=== PATIENT | female | born 1965 ===

== ENCOUNTER 2017-03-10 05:30 | Day surgery (SDC) | payer OTHER ==
[~2017-03-10 05:30] MED LIST: CARDURA8 MG PO; FORTAMET1000 MG PO; GLUCOTROL10 MG PO; HYZAAR 100-12.1 EACH PO; NORVASC5 MG PO; SYNTHROID100 MCG PO; TOPROL XL50 M1 PO
[2017-03-10] MEDS ORDERED: CIPRO250 MG/5 M PO (09:20)
[2017-03-10] MEDS ORDERED: ULTRACET PO (09:21)
== END 2017-03-10 12:40 | disposition home or self-care (01) ==
LOC: CIR.AMB 05:30
DX: N81.6 Rectocele (principal); N81.5 Vaginal enterocele; N39.3 Stress incontinence (female) (male)

== ENCOUNTER 2017-08-18 05:44 | Day surgery (SDC) | payer OTHER ==
[~2017-08-18 05:44] MED LIST changes: +CIPRO250 MG/5 M PO; +ULTRACET PO
[2017-08-18] MEDS ORDERED: ULTRACET PO (10:43)
[2017-08-18] MEDS ORDERED: MACROBID 100 M100 MG PO (10:43)
== END 2017-08-18 11:55 | disposition home or self-care (01) ==
LOC: CIR.AMB 05:44
DX: N81.3 Complete uterovaginal prolapse (principal)

== ENCOUNTER 2021-09-17 06:12 | Day surgery (SDC) | payer OTHER ==
[~2021-09-17 06:12] MED LIST changes: +MACROBID 100 M100 MG PO
[2021-09-17] MEDS ORDERED: MACROBID 100 M100 MG PO (09:30)
[2021-09-17] MEDS ORDERED: ULTRACET PO (09:30)
== END 2021-09-17 12:35 | disposition home or self-care (01) ==
LOC: CIR.AMB 06:12
PROVIDERS: ATTEND Obstetrics & Gynecology Gynecology
DX: N81.11 Cystocele, midline (principal); Z20.822 Contact with and (suspected) exposure to COVID-19; I10 Essential (primary) hypertension; Z88.0 Allergy status to penicillin; E03.9 Hypothyroidism, unspecified; E11.9 Type 2 diabetes mellitus without complications; E66.01 Morbid (severe) obesity due to excess calories; Z79.84 Long term (current) use of oral hypoglycemic drugs; N81.6 Rectocele; N81.9 Female genital prolapse, unspecified